=== PATIENT | female | born 2000 | race Caucasian/White ===

== ENCOUNTER 2021-02-03 04:59 | Inpatient (IN) | payer SELFPAY ==
[2021-02-03] VITALS (27 sets, daily range): BP systolic 99–147; BP diastolic 46–85; PULSE 58–86; RESP 15–18; TEMP 36.4–37.6; O2SAT 97–98; BMI 27.1
[2021-02-03] MEDS: lactated ringers 1,000 ML 999 ML IV (05:20)
[2021-02-03 05:41] LABS: Basophils % 0.3 %; Eosinophils % 0.2 %; Hematocrit 36.5 % (37.0-47.0); Hemoglobin 12.8 g/dL (11.5-15.3); Lymphocytes # 1.4 10^3/uL (0.8-4.8); Lymphocytes % 11.7 %; Mean Corpuscular HGB Conc 35.1 g/dL (30.0-36.0); Mean Corpuscular Hemoglobin 31.5 pg (28.0-34.0); Mean Corpuscular Volume 89.9 fl (81-99); Mean Platelet Volume 12.8 fL (7.4-10.4); Monocytes # 0.9 10^3/uL (0.2-0.9); Monocytes % 7.2 %; Neutrophils # 9.89 10^3/uL (1.8-7.7); Nucleated Red Blood Cells % 0 %; Platelet Count 161 10^3/cmm (130-400); Red Blood Count 4.06 10^6/uL (4.1-5.3); Red Cell Distribution Width 12.2 % (12.1-15.1); White Blood Count 12.4 10^3/uL (4.0-10.0)
[2021-02-03] MEDS: citric acid-sodium citrate 30 mL UDC PO (05:43)
[2021-02-03] MEDS: famotidine 20 mg/2 mL INJ IVP (05:43)
[2021-02-03] MEDS: metoclopramide 5 mg/mL SDV 2 mL 10 MG IVP (05:43)
--- NOTE | 2021-02-03 05:50 | P.ANESASSM_ITS ---
Pre-Anesthetic Assessment Pre-Anesthetic Assessment: Height/Weight: Height 1.65 m Weight 73.936 kg Temp Pulse BP 99.7 F H 83 118/71 02/03/21 04:44 02/03/21 04:44 02/03/21 04:44 Preop Diagnosis: breech Proposed Procedure: Was Beta Tomas taken within 24 hours: N/A Was Clonidine taken within 24 hours: N/A Social: Social History: No alcohol and No tobacco Exam: Pre-Anes Outpt Exam: alert, oriented x 3, clear to auscultation bilaterally and regular rate & rhythm Airway: Submandibular: WNL Cervical ROM: WNL MP: 2 Dentition: Full Pulmonary: Pulmonary: None reported CV/HEM: CV/HEM: None reported : : None reported Hepatic: Hepatic: None reported GI: GI: None reported Metabolic: Metabolic: None reported Musc/skel: Musc/skel: None reported Neuropsych: Neuropsych: None reported Anesthetic Plan: Anesthesia: Regional (specify below) Risk of > 500 ml blood loss (7ml/kg in children): Yes, adequate IV access and fluids planned Meds/Allergies Current Medications: Current Medications Generic Name Dose Route Start Last Admin Trade Name Freq PRN Reason Stop Dose Admin Lactated Ringer's 1,000 mls @ 999 m ls/hr 02/03/21 04:56 02/03/21 05:20 Lactated Ringers IV 02/03/21 05:56 999 mls/hr .Q1H1M ONE Administration PFSH Anesthesia Female Reproductive History: : 1 Data Anesthesia CBC & Chem 7: 02/03/21 05:17 Other Labs: Laboratory Results - last 48 hr 02/03/21 05:17 WBC 12.4 H RBC 4.06 L Hgb 12.8 Hct 36.5 L MCV 89.9 MCH 31.5 MCHC 35.1 RDW 12.2 Plt Count 161 MPV 12.8 H Neut % (Auto) 80.0 Lymph % (Auto) 11.7 [place] % (Auto) 7.2 Eos % (Auto) 0.2 Baso % (Auto) 0.3 Neut # (Auto) 9.89 H Lymph # (Auto) 1.4 [place] # (Auto) 0.9 Eos # (Auto) 0.0 Baso # (Auto) 0.0 Nucleated RBC % (auto) 0 Nucleated RBCs # 0.0 Cardiac Studies: No Data to Display
--- NOTE | 2021-02-03 05:55 | P.HP_ITS ---
Providers/Chief Complaint Admitting Physician: Rebekah Gasca MD Chief Complaint: ROM, hitlist with records officer History of Present Illness Ananya Carterurger is a 20 year old female at 40 weeks 5 days gestation by stated LMP 04/23/20 and YANET 01/28/21, who presented to labor and delivery 4 cm dilated 90% effaced and breech presentation. She was laboring at home with a records officer until it was discovered she was breech. She had rupture of membranes at approximately 1300 yesterday. GBS status is unknown as she declined GBS testing. Fluid has been clear. labs mother's blood type a negative antibody negative, father is also a negative. RPR nonreactive, rubella nonimmune, hepatitis B nonreactive, GBS unknown. No ultrasound noted on her records. Review of Systems Const: Denies: fever(s) or chills Eyes: Denies: blurry vision ENMT: Denies: swelling of lips/tongue Card: Denies: chest pain or irregular heart rhythm Resp: Denies: productive cough or non-productive cough GI: Reports: abdominal pain (Contractions about every 3 min) : Reports: vaginal bleeding (Bloody show) and vaginal discharge (Clear fluid); Denies: flank pain Musc: Denies: joint swelling or joint stiffness Skin/Breast: Denies: rash Neuro: Denies: seizure-like activity Jorge/Lymph: Denies: easy bruising or easy bleeding All/Imm: Denies: urticaria or throat swelling Medications/Allergies Home Medications Medication Instructions Recorded Confirmed Last Taken Type Vitamin 1 tab PO DAILY 02/03/21 02/03/21 Unknown History docusate sodium 100 mg PO BID #60 cap 02/04/21 Unknown Rx hydrocodone-acetaminophen 1 - 2 tab PO Q4H PRN #15 tab 02/04/21 Unknown Rx ibuprofen 800 mg PO TID PRN #30 tab 02/04/21 Unknown Rx Allergies Allergy/AdvReac Type Severity Reaction Status Date / Time No Known Allergies Allergy Verified 02/03/21 05:19 PFSH Acute 2 PFSH: Social History (Updated 02/03/21 @ 06:11 by Rebekah Gasca MD) Smoking and tobacco status: never smoked Second hand smoke exposure: No Alcohol intake: never Substance/Drug Use: never Female Reproductive History: Date of last menstrual period: 04/23/20 control method: none : 1 Spontaneous abortions: No Other female reproductive history: ROM about 17 hours ago, clear, GBS unknown. Blood type A-, antibody negative. The is verified A negative and so the patient was not given RhoGam. RPR nonreactive, rubella nonimmune, hepatitis B nonreactive, GBS unknown. No ultrasound noted on her records. She has been receiving records officer care Vitals/I&O/Wt Last Vital Signs Temp 99.7 F H 02/03/21 04:44 Pulse 82 02/03/21 05:49 BP 113/74 02/03/21 05:49 Weight last 48 hrs Weight 73.936 kg Physical Exam Const: COMMON NORMALS: no acute distress (Mild distress with contractions) and alert GENERAL APPEARANCE: cooperative HENMT: COMMON NORMALS: normocephalic and atraumatic Eye: COMMON NORMALS: Equal, round and reactive pupils present and EOMs intact bilaterally Chest: COMMONS NORMALS: normal inspection of the chest Resp: COMMON NORMALS: normal respiratory effort, No retractions and No use of accessory muscles EFFORT & INSPECTION: Yes able to speak in complete sentences AUSCULTATION: clear to auscultation bilaterally Cardio: RATE: tachycardic GI: COMMON NORMALS: Soft to palpation and non-tender (Gravid) Extremity: GENERAL: Yes normal exam except as noted Neuro: SENSORIUM/ORIENTATION: Yes alert and Yes oriented to person Data : 02/03/21 20:40 A&P Assessment and plan (1) Breech presentation of fetus: The patient is a 4 cm dilated in active labor. Risk benefits and alternatives of primary section were discussed with the patient in detail. Plan for primary section. Status: Acute (2) Postmaturity , 40-42 weeks gestation: Status: Acute Attestations Medical Necessity Statement*: Surgery and routine postoperative Coding Level of Care Code Acute Deputy District [employer] Director for [facility] Meg Diagnoses Breech presentation of fetus O32.1XX0 Postmaturity , 40-42 weeks gestation O48.0
--- NOTE | 2021-02-03 07:12 | PM.OP ---
Operative Report Date of procedure: February 03, 2021 Pre-op Diagnosis: breech Post-op diagnosis: same Procedure Done: Primary low transverse section Specimens removed/disposition: Noreen breech male 3985 g, 8 pounds 13 ounces, Apgars 8 and 9 Pathology: none sent Surgeon: Rebekah Gasca MD Anesthesia: Other (Spinal) Estimated blood loss (mL): 300 IV fluids (mL): 2,300 Urine output (mL): 1,300 Complications: None Condition: stable Disposition: PACU Procedure: After informed consent the patient was taken to the OR where spinal anesthesia was administered. She was prepped and draped in normal sterile fashion in dorsal supine position with a left lateral tilt. A Pfannenstiel skin skin incision was made and carried through to the underlying layer of fascia sharply. She had several large cutaneous vessels that required coagulation using the Bovie. The fascial incision was then extended laterally using the Mayos. The fascia was grasped with Jeni clamps and the underlying rectus muscles were dissected off taking care to avoid injury to the underlying tissue. The peritoneum was then entered bluntly using a hemostat and the incision site was manually stretched. Bladder blade was then inserted and the vesicouterine peritoneum was identified and entered sharply using the Metzenbaums. Bladder flap was then created digitally and the bladder blade was then reinserted. Uterine incision was made in a transverse fashion in the lower uterine segment. Amniotic rupture of membranes was performed sharply and there was clear fluid. The was delivered in noreen breech position with bulb suction of the mouth and nares at delivery. The cord was clamped and cut and the infant was handed to the waiting pediatric team. Cord blood was obtained. The placenta was delivered using fundal pressure. The uterus was then exteriorized from the abdomen and a dry sponge was used to clear the uterus of clots and debris. The uterine incision was repaired using 0 chromic in a running locked fashion. A second layer of the same suture was used in an imbricating manner. The uterus was then returned to the abdomen and an irrigation was used to clear the gutters of clots and debris. Uterine incision was inspected for hemostasis. The peritoneum was then reapproximated using 4-0 Vicryl in a running fashion. The subfascial tissue was inspected for hemostasis and the fascia was then reapproximated using 0 Vicryl in a running fashion. The subcutaneous tissue was then irrigated and any small bleeders were coagulated using the Bovie. The subcutaneous tissue was then reapproximated using 4-0 Vicryl in a running fashion. The skin was then reapproximated using 4-0 Vicryl on a Shalom needle. Steri-Strips and a pressure bandage were applied and patient went to recovery in stable condition Sponge instrument and needle counts were correct.
--- NOTE | 2021-02-03 08:39 | PC.NURSE ---
PT MOVED FROM OB-OR TO ROOM 12 VIA BED. ORIENTED TO BED/CALL LIGHT. INSTRUCTED NOT TO GET OUT OF BED WITHOUT ASSISTANCE, AND NO FOOD OR DRINK UNLESS APPROVED BY NURSING STAFF.
[2021-02-03] MEDS: ondansetron 2 mg/ML SDV 2 mL 4 MG IVP (09:37)
[2021-02-03] MEDS: dextrose 5%-lactated ringers 1,000 ML 125 ML IV ×2 (09:48→18:04)
[2021-02-03] MEDS: diphenhydrAMINE 50 mg/mL SDV 1mL 25 MG IVP (10:55)
[2021-02-03] MEDS: ketorolac 30 mg/mL INJ IVP ×2 (12:49→18:55)
--- NOTE | 2021-02-03 12:55 | PC.NURSE ---
PT ASSISTED TO CHAIR WITHOUT DIFFICULTY. GOWN CHANGED, MESH UNDERWEAR AND CLEAN PAD PUT ON. PT REMAINS SITTING AT BEDSIDE IN CHAIR, CALL LIGHT IN REACH. PT ENCOURAGED TO SIT UP IN CHAIR LONG DESIRED, AND TO CALL STAFF FOR ASSISTANCE WHEN READY TO RETURN TO BED. CLEAR LIQUID TRAY PROVIDED. ICE WATER GIVEN.
--- NOTE | 2021-02-03 15:02 | PC.NURSE ---
PT AMBULATED FROM OB12 TO END OF PP HALLWAY AND BACK TO ROOM AND GOT INTO BED. TOLERATED WELL.
[2021-02-03] MEDS: docusate sodium 100 mg Capsule PO (18:04)
[2021-02-03] MEDS: ferrous sulfate EC 325 mg Tablet PO (18:04)
[2021-02-03 20:50] LABS: Hematocrit 34.7 % (37.0-47.0); Hemoglobin 12.1 g/dL (11.5-15.3); Mean Corpuscular HGB Conc 34.9 g/dL (30.0-36.0); Mean Corpuscular Hemoglobin 31.9 pg (28.0-34.0); Mean Corpuscular Volume 91.6 fl (81-99); Mean Platelet Volume 12.4 fL (7.4-10.4); Platelet Count 136 10^3/cmm (130-400); Red Blood Count 3.79 10^6/uL (4.1-5.3); Red Cell Distribution Width 12.3 % (12.1-15.1); White Blood Count 11.6 10^3/uL (4.0-10.0)
[2021-02-04] MEDS: ketorolac 30 mg/mL INJ IVP (01:52)
[2021-02-04 01:54] VITALS: BP 100/63; PULSE 71; RESP 17; TEMP 36.8; O2SAT 97
[2021-02-04 03:57] VITALS: BP 97/55; PULSE 68; RESP 15; TEMP 36.9; O2SAT 97
[2021-02-04] MEDS: prenatal vitamin Capsule 1 CAP PO (10:05)
[2021-02-04] MEDS: ibuprofen 800 mg tablet PO (10:05)
[2021-02-04] MEDS: docusate sodium 100 mg Capsule PO (10:05)
[2021-02-04 10:15] VITALS: BP 97/63; PULSE 80; RESP 18; TEMP 36.9; O2SAT 97
--- NOTE | 2021-02-04 12:45 | P.DS_ITS ---
Discharge Providers RADIO TOWER TECHNICIAN Date of Admission: 02/03/21 04:59 Date of Discharge: 02/04/21 Attending Provider at Admission: Rebekah Gasca MD Attending Provider at Discharge: Rebekah Gasca MD Diagnoses at Discharge Discharge Diagnosis (1) No pertinent past surgical history: Status: Acute (2) No pertinent past medical history: Status: Acute (3) Status post primary low transverse section: Status: Acute Reason for Visit Reason for Visit: BETSEY, hitjessica with community organization director Hospital Course Hospital Course This is a 20-year-old G1 now P1 who presented to labor and delivery after laboring at home with a community organization director. She was found to be 4 cm dilated with breech presentation. She presented for primary section. The was delivered noreen breech. Mother did very well postoperatively. She was ambulating, tolerating a regular diet, had good pain control and was requesting discharge home. Information Peripartum Data: Infant Delivery Method: Physical Exam Narrative: EXAM NARRATIVE: Sitting in bedside chair comfortable heart regular rate and rhythm, lungs clear to auscultation bilaterally, abdomen soft, minimal postoperative tenderness, fundus is firm and U- 3, incision is clean dry and intact with no erythema or exudates. extremities have no edema and no calf tenderness. P Urinary Catheter Management^: [place]: Cath Placed During This Visit: yes, but has since been removed by the nurse Reason for Continuing Indwelling Catheter: Perioperative Use in Selected Surgeries Urinary Catheter Date of Insertion: 02/03/21 Urinary Catheter Time of Insertion: 06:20 Date Urinary Catheter Removed: 02/04/21 Time Urinary Catheter Discontinued: 07:15 Discharge Data Data Completed and Pending: Labs from last 24 hours 02/03/21 20:40 WBC 11.6 H RBC 3.79 L Hgb 12.1 Hct 34.7 L MCV 91.6 MCH 31.9 MCHC 34.9 RDW 12.3 Plt Count 136 MPV 12.4 H Vitals: Last Vital Signs Temp 98.4 F 02/04/21 10:15 Pulse 80 02/04/21 10:15 Resp 18 02/04/21 10:15 BP 97/63 02/04/21 10:15 Pulse Ox 97 02/04/21 10:15 Discharge Plan Discharge Patient Disposition: Home Condition: Stable Prescriptions: New ibuprofen 800 mg Tablet 800 mg PO TID PRN (Reason: Abdominal Discomfort) Qty: 30 RF: 0 hydrocodone-acetaminophen 5-325 mg Tablet 1 - 2 tab PO Q4H PRN (Reason: Moderate To Severe Pain) Qty: 15 RF: 0 docusate sodium 100 mg Capsule 100 mg PO BID Qty: 60 RF: 0 Continued Vitamin 1 tab PO DAILY RF: 0 Discharge Orders: Discharge Order (Routine); Ordered 02/04/21 Ordered By: Rebekah Gasca Referrals: Rebekah Gasca MD [Physician] - 4-7 days (for inscision check) Discharge Diet: Usual diet Discharge Activity: Limit activity as instructed Patient Instructions: Preeclampsia and Eclampsia After Delivery (GEN), Breast Care for the Mother (DC), OB - Cassy/Campos, OB Gisel billingsley Report, OB Food/Drug Interaction Guide, Opioid Safety, OB Home Care, Abnormal Bleeding Discharge Attestations RADIO TOWER TECHNICIAN Time Spent in Discharge Care*: less than 30 min Coding Level of Care Code Acute Asbestos Brake Lining Finisher for Chg Fwd Diagnoses No pertinent past surgical history Z78.9 No pertinent past medical history Z78.9 Status post primary low transverse section Z98.891
[2021-02-04 16:20] VITALS: BP 106/67; PULSE 76; RESP 15; TEMP 36.9
[2021-02-04 19:10] VITALS: BP 106/67; PULSE 76; RESP 15; TEMP 36.9
== END 2021-02-04 19:10 | disposition home or self-care (01) | DRG 788 ==
LOC: OPOB 05:03 → OBGYN 05:03
PROVIDERS: Admitting Provider Family Medicine; Visit Provider Family Medicine
PROC: 10D00Z1 Extraction of Products of Conception, Low, Open Approach (ICD-10-PCS; CPT 59514; principal; 2021-02-03 05:55)
DX: O64.1XX0 Obstructed labor due to breech presentation, not applicable or unspecified (principal); Z3A.40 40 weeks gestation of pregnancy; Z37.0 Single live birth; O48.0 Post-term pregnancy
CPT/HCPCS: 36415; 51702; 59025; 85025; 85027; 99211; J1100; J1200; J1885; J2274; J2405; J2765; J3490; J7030